=== PATIENT | male | born 1980 | race Caucasian/White ===

== ENCOUNTER 2017-10-10 18:09 | Inpatient (IN) | payer SELFPAY ==
[2017-10-10] MEDS ORDERED: HYDROmorphone 2 MG/ML VIAL IV (19:15)
[2017-10-10] MEDS ORDERED: PIP/TAZO PER PHARMACY MC (19:15)
[2017-10-10] MEDS: VANCOMYCIN PER PHARMACY MC ×2 (19:47→20:38)
[2017-10-10] MEDS: KETOROLAC 15 MG/ML VIAL. IV (20:25)
[2017-10-10] MEDS: VANCOMYCIN 1.25 GM in IV 1/2 NORMAL SALINE 250 ML IV (20:35)
[2017-10-10] MEDS ORDERED: VANCOMYCIN 1.5 GM in IV 1/2 NORMAL SALINE 500 ML IV (21:00)
[2017-10-10] MEDS: MORPHINE SULFATE 4 MG/ML DISP.SYRIN. IV (22:25)
[2017-10-11] MEDS: PIPERACILLIN/TAZOBACTAM 3.375 GM in IV NORMAL SALINE 50ML 50 ML IV ×4 (00:17→21:00)
[2017-10-11] MEDS: KETOROLAC 15 MG/ML VIAL. IV ×2 (03:34→16:34)
[2017-10-11] MEDS: VANCOMYCIN 1.5 GM in IV 1/2 NORMAL SALINE 500 ML IV ×3 (03:54→21:58)
[2017-10-11 05:21] LABS: ADD MAN DIFF? NO
[2017-10-11 05:25] LABS: BASO % 0 % (0-3); EOS # 0.2 x10^3/uL (0.0-0.7); EOS % 2 % (0-3); HEMATOCRIT 37.5 % (39.0-53.0); HEMOGLOBIN 12.7 g/dL (13.0-17.5); LYMPH # 1.2 x10^3/uL (1.0-4.8); LYMPH % 12 % (24-48); MEAN CORPUSCULAR HEMOGLOBIN 28 pg (25-35); MEAN CORPUSCULAR HGB CONC 34 g/dL (31-37); MEAN CORPUSCULAR VOLUME 84 fL (79-100); MONO # 0.8 x10^3/uL (0.0-1.1); MONO % 8 % (0-9); NEUT # 8.2 x10^3uL (1.8-7.7); NEUT % 79 % (31-73); PLATELET COUNT 252 x10^3/uL (140-400); RED BLOOD COUNT 4.45 x10^6/uL (4.30-5.70); RED CELL DISTRIBUTION WIDTH 13.6 % (11.5-14.5); WHITE BLOOD COUNT 10.4 x10^3/uL (4.0-11.0)
[2017-10-11 05:56] LABS: ALBUMIN 2.9 g/dL (3.4-5.0); ALBUMIN/GLOBULIN RATIO 0.7 (1.0-1.7); ALK PHOS 88 U/L (46-116); ALT (SGPT) 159 U/L (16-63); ANION GAP 5 (6-14); AST (SGOT) 36 U/L (15-37); BLOOD UREA NITROGEN 7 mg/dL (8-26); BUN/CREATININE RATIO 9 (6-20); C-REACTIVE PROTEIN 36.1 mg/L (0-3.3); CALCIUM 8.6 mg/dL (8.5-10.1); CARBON DIOXIDE 27 mmol/L (21-32); CHLORIDE 105 mmol/L (98-107); CREATININE 0.8 mg/dL (0.7-1.3); GFR 109.4; GLUCOSE 100 mg/dL (70-99); POTASSIUM 3.9 mmol/L (3.5-5.1); SODIUM 137 mmol/L (136-145); TOTAL BILIRUBIN 0.6 mg/dL (0.2-1.0); TOTAL PROTEIN 7.1 g/dL (6.4-8.2)
[2017-10-11] MEDS: fentaNYL PF VIAL 100 MCG/2 ML VIAL IV ×5 (06:28→19:00)
[2017-10-11] MEDS: MORPHINE SULFATE 4 MG/ML DISP.SYRIN. IV ×4 (06:54→21:59)
[2017-10-11 07:28] LABS: SEDIMENTATION RATE 57 (0-15)
[2017-10-11] MEDS: VANCOMYCIN PER PHARMACY MC (14:48)
[2017-10-11] MEDS ORDERED: PROPOFOL 20 ML IV ×2 (16:20→17:47)
[2017-10-11] MEDS ORDERED: DEXAMETHASONE SOD PHOS 20 MG/5 ML VIAL. (16:20)
[2017-10-11] MEDS ORDERED: LIDOCAINE 1% PF 5 ML VIAL. (16:20)
[2017-10-11] MEDS ORDERED: fentaNYL PF VIAL 100 MCG/2 ML VIAL (16:21)
[2017-10-11] MEDS ORDERED: ONDANSETRON PF 4 MG/2 ML VIAL. (16:21)
[2017-10-11] MEDS: IV RINGERS,LACTATED 1000ML 1,000 ML IV (18:28)
[2017-10-11] MEDS ORDERED: ONDANSETRON PF 4 MG/2 ML VIAL. IV (18:30)
[2017-10-11] MEDS ORDERED: MORPHINE SULFATE 4 MG/ML DISP.SYRIN. IV (18:30)
[2017-10-11] MEDS ORDERED: fentaNYL PF VIAL 100 MCG/2 ML VIAL IV ×2 (18:30)
[2017-10-11] MEDS ORDERED: LIDOCAINE 1% PF 2 ML VIAL. ID (18:30)
[2017-10-11] MEDS ORDERED: DEXTROSE 50% 25 GM / 50ML DISP.SYRIN. IV (18:30)
[2017-10-11] MEDS: PROCHLORPERAZINE 10 MG/2 ML VIAL. IV (18:34)
[2017-10-12] MEDS: PIPERACILLIN/TAZOBACTAM 3.375 GM in IV NORMAL SALINE 50ML 50 ML IV ×5 (00:28→23:47)
[2017-10-12 04:23] LABS: VANC TR 19.1 mcg/mL (10.0-20.0)
[2017-10-12] MEDS: VANCOMYCIN 1.5 GM in IV 1/2 NORMAL SALINE 500 ML IV ×3 (04:58→20:17)
[2017-10-12] MEDS: MORPHINE SULFATE 4 MG/ML DISP.SYRIN. IV ×4 (05:01→20:17)
[2017-10-12] MEDS: VANCOMYCIN PER PHARMACY MC ×2 (05:28→15:06)
[2017-10-12] MEDS ORDERED: MAGNESIUM HYDROXIDE 2,400 MG/30 ML ORAL.SUSP. PO (06:00)
[2017-10-12] MEDS: SENNOSIDES/DOCUSATE 8.6/50MG TABLET. PO (09:00)
[2017-10-12] MEDS: DIPHTH,PERTUSS(ACELL),TET TOX 0.5 ML DISP.SYRIN. VAX IM (11:02)
[2017-10-12] MEDS: KETOROLAC 15 MG/ML VIAL. IV ×2 (11:03→17:47)
[2017-10-12] MEDS ORDERED: BISACODYL 10 MG SUPP.RECT. PR (16:00)
[2017-10-12] MEDS: LACTOBACILLUS RHAMNOSUS GG 1 CAPSULE. PO ×2 (17:47→21:00)
[2017-10-13] MEDS: KETOROLAC 15 MG/ML VIAL. IV ×2 (02:24→13:54)
[2017-10-13] MEDS: PIPERACILLIN/TAZOBACTAM 3.375 GM in IV NORMAL SALINE 50ML 50 ML IV (05:41)
[2017-10-13] MEDS: MORPHINE SULFATE 4 MG/ML DISP.SYRIN. IV ×4 (05:41→19:56)
[2017-10-13 06:24] LABS: HEMATOCRIT 35.9 % (39.0-53.0); HEMOGLOBIN 12.2 g/dL (13.0-17.5); MEAN CORPUSCULAR HEMOGLOBIN 29 pg (25-35); MEAN CORPUSCULAR HGB CONC 34 g/dL (31-37); MEAN CORPUSCULAR VOLUME 85 fL (79-100); PLATELET COUNT 235 x10^3/uL (140-400); RED BLOOD COUNT 4.24 x10^6/uL (4.30-5.70); RED CELL DISTRIBUTION WIDTH 13.6 % (11.5-14.5); WHITE BLOOD COUNT 7.8 x10^3/uL (4.0-11.0)
[2017-10-13 06:37] LABS: ALBUMIN 2.5 g/dL (3.4-5.0); ALBUMIN/GLOBULIN RATIO 0.7 (1.0-1.7); ALK PHOS 71 U/L (46-116); ALT (SGPT) 140 U/L (16-63); ANION GAP 6 (6-14); AST (SGOT) 50 U/L (15-37); BLOOD UREA NITROGEN 16 mg/dL (8-26); BUN/CREATININE RATIO 12 (6-20); CALCIUM 8.6 mg/dL (8.5-10.1); CARBON DIOXIDE 29 mmol/L (21-32); CHLORIDE 108 mmol/L (98-107); CREATININE 1.3 mg/dL (0.7-1.3); GFR 62.5; GLUCOSE 80 mg/dL (70-99); POTASSIUM 3.8 mmol/L (3.5-5.1); SODIUM 143 mmol/L (136-145); TOTAL BILIRUBIN 0.4 mg/dL (0.2-1.0); TOTAL PROTEIN 6.3 g/dL (6.4-8.2)
[2017-10-13] MEDS: VANCOMYCIN 1.5 GM in IV 1/2 NORMAL SALINE 500 ML IV (07:00)
[2017-10-13] MEDS: LACTOBACILLUS RHAMNOSUS GG 1 CAPSULE. PO ×2 (09:15→19:56)
[2017-10-13] MEDS: SENNOSIDES/DOCUSATE 8.6/50MG TABLET. PO (09:15)
[2017-10-13] MEDS: ONDANSETRON PF 4 MG/2 ML VIAL. IV (09:15)
[2017-10-13] MEDS: POLYETHYLENE GLYCOL 3350 17 GM PACKET. PO (09:16)
[2017-10-13] MEDS: LINEZOLID 600 MG TABLET PO ×2 (13:54→19:57)
[2017-10-14] MEDS: MORPHINE IR 15 MG TABLET PO ×5 (00:06→18:43)
[2017-10-14] MEDS: SENNOSIDES/DOCUSATE 8.6/50MG TABLET. PO (08:56)
[2017-10-14] MEDS: LACTOBACILLUS RHAMNOSUS GG 1 CAPSULE. PO ×2 (08:56→20:35)
[2017-10-14] MEDS: LINEZOLID 600 MG TABLET PO ×2 (08:56→20:35)
[2017-10-14 09:37] LABS: ANION GAP 5 (6-14); BLOOD UREA NITROGEN 20 mg/dL (8-26); CALCIUM 8.6 mg/dL (8.5-10.1); CARBON DIOXIDE 31 mmol/L (21-32); CHLORIDE 107 mmol/L (98-107); CREATININE 2.3 mg/dL (0.7-1.3); GFR 32.3; GLUCOSE 103 mg/dL (70-99); POTASSIUM 4.2 mmol/L (3.5-5.1); SODIUM 143 mmol/L (136-145)
[2017-10-14] MEDS: amLODIPine BESYLATE 5 MG TABLET PO (16:52)
[2017-10-14 18:00] LABS: BILIRUBIN,URINE NEGATIVE (NEG); CLARITY,URINE CLEAR; COLOR,URINE YELLOW; GLUCOSE,URINE NEGATIVE (NEG); NITRITE,URINE NEGATIVE (NEG); PH,URINE 5.5; PROTEIN,URINE NEGATIVE (NEG-TRACE); UROBILINOGEN,URINE 0.2 mg/dL (0.2 mg/dL)
[2017-10-14 18:13] LABS: BACTERIA,URINE 0 /HPF (0-FEW); RBC,URINE RARE /HPF (0-2); SQUAMOUS EPITHELIAL CELL,UR OCC /LPF; WBC,URINE 0 /HPF (0-4)
[2017-10-15] MEDS: MORPHINE IR 15 MG TABLET PO ×6 (00:25→22:55)
[2017-10-15 06:35] LABS: ADD MAN DIFF? NO
[2017-10-15 06:44] LABS: BASO % 1 % (0-3); EOS # 0.3 x10^3/uL (0.0-0.7); EOS % 4 % (0-3); HEMATOCRIT 37.9 % (39.0-53.0); HEMOGLOBIN 12.9 g/dL (13.0-17.5); LYMPH # 1.5 x10^3/uL (1.0-4.8); LYMPH % 18 % (24-48); MEAN CORPUSCULAR HEMOGLOBIN 29 pg (25-35); MEAN CORPUSCULAR HGB CONC 34 g/dL (31-37); MEAN CORPUSCULAR VOLUME 84 fL (79-100); MONO # 1.1 x10^3/uL (0.0-1.1); MONO % 13 % (0-9); NEUT # 5.1 x10^3uL (1.8-7.7); NEUT % 64 % (31-73); PLATELET COUNT 266 x10^3/uL (140-400); RED BLOOD COUNT 4.51 x10^6/uL (4.30-5.70); RED CELL DISTRIBUTION WIDTH 13.4 % (11.5-14.5)
[2017-10-15 07:00] LABS: ALBUMIN 2.6 g/dL (3.4-5.0); ALBUMIN/GLOBULIN RATIO 0.6 (1.0-1.7); ALK PHOS 71 U/L (46-116); ALT (SGPT) 208 U/L (16-63); ANION GAP 6 (6-14); AST (SGOT) 88 U/L (15-37); BLOOD UREA NITROGEN 22 mg/dL (8-26); BUN/CREATININE RATIO 9 (6-20); CALCIUM 8.8 mg/dL (8.5-10.1); CARBON DIOXIDE 30 mmol/L (21-32); CHLORIDE 106 mmol/L (98-107); CREATININE 2.5 mg/dL (0.7-1.3); GFR 29.4; GLUCOSE 93 mg/dL (70-99); POTASSIUM 4.2 mmol/L (3.5-5.1); SODIUM 142 mmol/L (136-145); TOTAL BILIRUBIN 0.5 mg/dL (0.2-1.0); TOTAL PROTEIN 6.7 g/dL (6.4-8.2)
[2017-10-15] MEDS: SENNOSIDES/DOCUSATE 8.6/50MG TABLET. PO (08:43)
[2017-10-15] MEDS: LACTOBACILLUS RHAMNOSUS GG 1 CAPSULE. PO ×2 (08:43→20:46)
[2017-10-15] MEDS: LINEZOLID 600 MG TABLET PO ×2 (08:43→20:46)
[2017-10-15] MEDS: amLODIPine BESYLATE 5 MG TABLET PO ×2 (08:43→14:26)
[2017-10-15] MEDS: MAGNESIUM HYDROXIDE 2,400 MG/30 ML ORAL.SUSP. PO (08:43)
[2017-10-15] MEDS: ACETAMINOPHEN 325 MG TABLET. PO (18:36)
[2017-10-16] MEDS: MORPHINE IR 15 MG TABLET PO ×4 (05:56→21:28)
[2017-10-16 06:08] LABS: HEMATOCRIT 36.4 % (39.0-53.0); HEMOGLOBIN 12.8 g/dL (13.0-17.5); MEAN CORPUSCULAR HEMOGLOBIN 29 pg (25-35); MEAN CORPUSCULAR HGB CONC 35 g/dL (31-37); MEAN CORPUSCULAR VOLUME 83 fL (79-100); PLATELET COUNT 257 x10^3/uL (140-400); RED BLOOD COUNT 4.37 x10^6/uL (4.30-5.70); RED CELL DISTRIBUTION WIDTH 13.1 % (11.5-14.5); WHITE BLOOD COUNT 7.6 x10^3/uL (4.0-11.0)
[2017-10-16 06:15] LABS: ALBUMIN 2.7 g/dL (3.4-5.0); ALBUMIN/GLOBULIN RATIO 0.6 (1.0-1.7); ALK PHOS 76 U/L (46-116); ALT (SGPT) 273 U/L (16-63); ANION GAP 5 (6-14); AST (SGOT) 131 U/L (15-37); BLOOD UREA NITROGEN 23 mg/dL (8-26); BUN/CREATININE RATIO 9 (6-20); CALCIUM 8.8 mg/dL (8.5-10.1); CARBON DIOXIDE 32 mmol/L (21-32); CHLORIDE 104 mmol/L (98-107); CREATININE 2.5 mg/dL (0.7-1.3); GFR 29.4; GLUCOSE 91 mg/dL (70-99); POTASSIUM 4.5 mmol/L (3.5-5.1); SODIUM 141 mmol/L (136-145); TOTAL BILIRUBIN 0.6 mg/dL (0.2-1.0)
[2017-10-16] MEDS: BISACODYL 10 MG SUPP.RECT. PR (08:30)
[2017-10-16] MEDS: LINEZOLID 600 MG TABLET PO ×2 (08:37→21:27)
[2017-10-16] MEDS: amLODIPine BESYLATE 10 MG TABLET PO (08:38)
[2017-10-16] MEDS: LACTOBACILLUS RHAMNOSUS GG 1 CAPSULE. PO ×2 (08:38→21:27)
[2017-10-16] MEDS: SENNOSIDES/DOCUSATE 8.6/50MG TABLET. PO (08:38)
[2017-10-16 12:18] LABS: CREAT RD UR 44.3 mg/dL (Not Estab.); MICRO CREAT RATIO 35.9 mg/g creat (0.0-30.0); MICROALB RD UR 15.9 ug/mL (Not Estab.)
[2017-10-17] MEDS: MORPHINE IR 15 MG TABLET PO ×3 (06:09→15:10)
[2017-10-17 06:44] LABS: ALBUMIN 2.9 g/dL (3.4-5.0); ANION GAP 6 (6-14); BLOOD UREA NITROGEN 28 mg/dL (8-26); CALCIUM 9.2 mg/dL (8.5-10.1); CARBON DIOXIDE 32 mmol/L (21-32); CHLORIDE 101 mmol/L (98-107); CREATININE 2.5 mg/dL (0.7-1.3); GFR 29.4; GLUCOSE 92 mg/dL (70-99); PHOSPHORUS 4.4 mg/dL (2.6-4.7); POTASSIUM 4.6 mmol/L (3.5-5.1); SODIUM 139 mmol/L (136-145)
[2017-10-17] MEDS: LACTOBACILLUS RHAMNOSUS GG 1 CAPSULE. PO (08:35)
[2017-10-17] MEDS: amLODIPine BESYLATE 10 MG TABLET PO (08:36)
[2017-10-17] MEDS: LINEZOLID 600 MG TABLET PO (08:36)
[2017-10-17] MEDS: SENNOSIDES/DOCUSATE 8.6/50MG TABLET. PO (08:36)
== END 2017-10-17 15:15 | disposition home or self-care (01) | DRG 570 ==
LOC: 4 NORTH 18:09
PROC: 0JBG0ZZ Excision of Right Lower Arm Subcutaneous Tissue and Fascia, Open Approach (ICD-10-PCS; principal; 2017-10-11 16:00)
PROC: 0JBK0ZZ Excision of Left Hand Subcutaneous Tissue and Fascia, Open Approach (ICD-10-PCS; 2017-10-11 16:00)
PROC: 0JBH0ZZ Excision of Left Lower Arm Subcutaneous Tissue and Fascia, Open Approach (ICD-10-PCS; 2017-10-11 16:00)
DX: L02.413 Cutaneous abscess of right upper limb (principal); N17.0 Acute kidney failure with tubular necrosis; N17.9 Acute kidney failure, unspecified; L02.512 Cutaneous abscess of left hand; F11.10 Opioid abuse, uncomplicated; L02.414 Cutaneous abscess of left upper limb; L03.113 Cellulitis of right upper limb; L03.114 Cellulitis of left upper limb; F15.10 Other stimulant abuse, uncomplicated; F17.200 Nicotine dependence, unspecified, uncomplicated; K21.9 Gastro-esophageal reflux disease without esophagitis; K59.00 Constipation, unspecified; Z90.49 Acquired absence of other specified parts of digestive tract
CPT/HCPCS: 36415; 76770; 80048; 80053; 80069; 80202; 81001; 82043; 82570; 85025; 85027; 85651; 86140; 87071; 87075; 87205; 90715; 97161-GP; 97165-GO; 97535-GO; J0780; J1100; J1885; J2270; J2405; J2543; J2704; J3010; J3370